=== PATIENT | male | born 1975 | race Hispanic/Latino ===

== ENCOUNTER 2024-07-04 15:40 | Emergency (ER) | payer SELFPAY ==
[~2024-07-04] VITALS: Ht 170.2 cm; Wt 102.6 kg
[2024-07-04 15:46] VITALS: BP 146/71; PULSE 65; RESP 18; TEMP 98.2; O2SAT 97
[2024-07-04] MEDS ORDERED: LEVO750T68 PO (16:07)
--- NOTE | 2024-07-04 16:08 | ERN ---
ED Note History of Present Illness Stated Complaint: FOOT Chief Complaint: FOOT INJURY/PAIN Time Seen by MD: 15:43 Dictation: Patient comes in with complaint of injury to his right foot after stepping on a nail. He does have diabetes. He stepped on a nail while wearing tennis shoes. He had stepped off of it. There was initially some bleeding. Cleaned it up. Unknown tetanus status. He is diabetic. Comes in because of this. No other injury. Allergies: Coded Allergies: No Known Drug Allergies (Unverified Allergy, Unknown, 07/04/24) Past Medical History Past Medical History: Diabetes-Type II, Other Additional Past Medical Hx: KIDNEY ISSUE, OSTEOMYLITIS Surgical History: Other Surgical History Other: BACK SX Review of System Dictation Ten systems reviewed and negative except as noted in HPI Initial Vital Sign VS Vital Signs Date Time Temp Pulse Resp B/P (MAP) Pulse Ox O2 Delivery O2 Flow Rate FiO2 07/04/24 15:43 98.2 65 18 146/71 97 07/04/24 15:46 Room Air* 0 21 Physical Exam Dictation GEN: non toxic, NAD HEENT: atrumatic, PERRL, EOMI, conjunctivae normal NECK: Soft supple nontender Heart RRR, no murmurs Chest: No deformity Lungs: Lungs clear to auscultation Ab: Soft nondistended nontender Back: No midline step-offs. No gross deformity. No CVA tenderness : m/s: Moving all four extremities. No gross deformity. Looking at the bottom of the right foot at the distal foot by the base of the 2nd toe patient has perhaps a small area that had bled. It is currently not bleeding and was not open. I do think the puncture wound was likely very superficial. He can not really localize even where it hurts but knows that general area. There is no g aping open wound although I think there is a few drops of blood in the skin. The puncture wound did go through his tennis shoes. Neuro: CN 2-12 intact. Moving all four extremities. Psych: Cooperative ED Course ED Course Vital Signs Date Time Temp Pulse Resp B/P (MAP) Pulse Ox O2 Delivery O2 Flow Rate FiO2 07/04/24 15:46 98.2 65 18 146/71 97 Room Air* 0 21 07/04/24 15:43 98.2 65 18 146/71 97 Medical Decision Making MDM Patient does have puncture wound through the base of the foot. 06/19/2009 issues. Update tetanus. I do think the total depth was mildly low although it did puncture the skin. As such patient will be put on Levaquin. DX & DISP Disposition: Discharge Departure Impression: Primary Impression: Puncture wound of foot, right Condition: Stable Scripts Levofloxacin (Levaquin 750Mg Tabs) 750 Mg Tablet 1 TAB PO DAILY for 5 Days, #5 TAB 0 Refills Prov: DEE DNO MD 07/04/24 Additional Instructions: Antibiotics as prescribed Return for any increasing pain, redness, drainage, fever greater than 100.4 or any other concerns Referrals: SELF,REFERRAL (PCP) DEE DON MD Jul 04, 2024 16:08
[2024-07-04] MEDS: DIPH,PERTUSS(ACELL),TET VAC/PF 0.5 ML VIAL IM ONE (16:29)
== END 2024-07-04 16:34 | disposition home or self-care (01) ==
LOC: EDH 15:40
DX: S91.331A Puncture wound without foreign body, right foot, initial encounter (principal); E11.9 Type 2 diabetes mellitus without complications; W22.8XXA Striking against or struck by other objects, initial encounter; Y93.89 Activity, other specified; Y92.89 Other specified places as the place of occurrence of the external cause; Y99.8 Other external cause status
CPT/HCPCS: 90471; 90715; 99283